=== PATIENT | male | born 1970 | race American Indian/Alaskan Native ===

== ENCOUNTER 2017-11-01 11:21 | Inpatient (IN) | payer MEDICAID, OTHER ==
[2017-11-01 12:14] LABS: BASO # 0.1 K/uL (0.0-0.2); BASO % 1.3 % (0.0-2.0); EOS # 0.1 K/uL (0.0-0.7); EOS % 1.2 % (0.0-4.0); HEMOGLOBIN 13.1 g/dL (12.0-18.0); LYMPH # 2.2 K/uL (1.0-4.3); LYMPH % 23.5 % (20.0-40.0); MEAN CELL VOLUME 79.8 fL (80.0-94.0); MEAN CORPUSCULAR HEMOGLOBIN 26.5 pg (27.0-31.0); MEAN CORPUSCULAR HGB CONC 33.1 g/dL (33.0-37.0); MEAN PLATELET VOLUME 8.6 fL (7.2-11.7); MONO # 0.6 K/uL (0.0-0.8); MONO % 6.7 % (0.0-10.0); NEUT # 6.2 K/uL (1.8-7.0); NEUT % 67.3 % (50.0-75.0); NRBC % 0.1 % (0.0-2.0); RBC 4.94 Mil/uL (4.40-5.90); RED CELL DISTRIBUTION WIDTH 15.1 % (11.5-14.5); WHITE BLOOD COUNT 9.3 K/uL (4.8-10.8)
[2017-11-01 12:27] LABS: ALB/GLOB RATIO 1.5 (1.0-2.1); ALBUMIN 3.9 g/dL (3.5-5.0); ALT/SGPT 19 U/L (21-72); AST/SGOT 16 U/L (17-59); BLOOD UREA NITROGEN 13 mg/dL (9-20); CALCIUM 8.9 mg/dl (8.6-10.4); GFR AFRICAN-AMERICAN > 60; GFR NON-AFRICAN AMERICAN > 60
--- NOTE | 2017-11-01 12:59 | C.PDOC ---
History Of Present Illness 47 y/o male presents to the ER for detox from heroin and pills. Patient is prescreened. Patient does not have any other complaints. Time Seen by Provider: 11/01/17 12:21 Chief Complaint (Nursing): Substance Abuse History Per: Patient History/Exam Limitations: no limitations Past Medical History Reviewed: Historical Data, Nursing Documentation, Vital Signs Vital Signs: Last Vital Signs Temp 98.5 F 11/01/17 11:25 Pulse 90 11/01/17 11:25 Resp 12 11/01/17 11:25 BP 121/78 11/01/17 11:25 Pulse Ox 97 11/01/17 14:06 - Medical History PMH: Asthma, HTN, Hyperlipidemia Surgical History: No Surg Hx Family History: States: No Known Family Hx - Social History Hx Alcohol Use: Yes Hx Substance Use: Yes (THIS MORNING) - Immunization History Hx Tetanus Toxoid Vaccination: No Hx Influenza Vaccination: No Hx Pneumococcal Vaccination: No Review Of Systems Except As Marked, All Systems Reviewed And Found Negative. Physical Exam - Physical Exam Appears: No Acute Distress, Other (large, obese, black male) Skin: Normal Color, Warm Head: Atraumatic, Normacephalic Eye(s): bilateral: Normal Inspection Nose: Normal Oral Mucosa: Moist Neck: Supple Chest: Symmetrical Cardiovascular: Rhythm Regular Respiratory: Normal Breath Sounds, No Accessory Muscle Use, No Rales, No Rhonchi , No Wheezing Extremity: Normal ROM Neurological/Psych: Oriented x3, Normal Speech, Normal Motor, Normal Sensation ED Course And Treatment - Laboratory Results Result Diagrams: 11/01/17 12:11 11/01/17 12:11 Lab Interpretation: Abnormal (tox + opiates, cocaine, cannabanoids) O2 Sat by Pulse Oximetry: 97 (RA) Pulse Ox Interpretation: Normal Progress Note: d/w Crisis @ 1400, ok for Adm to detox Disposition Doctor Will See Patient In The: Hospital Counseled Patient/Family Regarding: Studies Performed, Diagnosis - Disposition Disposition: HOSPITALIZED Disposition Time: 13:57 Condition: GOOD - Clinical Impression Clinical Impression: Polysubstance dependence including opioid type drug, episodic abuse - Scribe Statement The provider has reviewed the documentation as recorded by the [place] Provider Attestation: All medical record entries made by the [place]ibkush were at my direction and personally dictated by me. I have reviewed the chart and agree that the record accurately reflects my personal performance of the history, physical exam, medical decision making, and the department course for this patient. I have also personally directed, reviewed, and agree with the discharge instructions and disposition.
[2017-11-01 13:05] LABS: SQUAMOUS EPITHIAL < 1 /hpf (0-5); URINE BACTERIA RARE (<OCC)
[2017-11-01 13:06] LABS: URINE BILIRUBIN SMALL (NEGATIVE); URINE BLOOD NEGATIVE (NEGATIVE); URINE CLARITY Clear (Clear); URINE COLOR YELLOW (YELLOW); URINE GLUCOSE (UA) NEGATIVE (Normal); URINE LEUKOCYTE ESTERASE NEGATIVE Leu/uL (Negative); URINE NITRATE NEGATIVE (NEGATIVE); URINE PROTEIN NEGATIVE (NEGATIVE); URINE UROBILINOGEN 0.2 mg/dL (0.2-1.0)
[2017-11-01 13:24] LABS: BARBITURATES, UR NEGATIVE (NEGATIVE); BENZODIAZEPINES, UR NEGATIVE (NEGATIVE); PHENCYCLIDINE, UR NEGATIVE (NEGATIVE)
[2017-11-01 13:45] LABS: OPIATES, UR POSITIVE (NEGATIVE)
[2017-11-01] MEDS ORDERED: Buprenorphine Hydrochloride 2 mg SL ONE ×2 (17:17→18:30)
--- NOTE | 2017-11-01 20:46 | PCM.BM ---
<Margi Pettit - Last Filed: 11/01/17 20:45> Treatment Plan Problems - Problems identified on initial assessmt Potential for opiate withdrawal Date Initiated: 11/01/17 Time Initiated: 20:46 Assessment reference: NA Status: Active Treatment assets and liabiliti Patient Assests: cooperative, negotiates basic needs, cognitively intact Patient Liabilities: substance abuse (Opiates), medical problems (HTN, DM) - Milieu Protocol Maintain good personal hygiene: daily Encourage regular showers, daily Remind patient to perform daily oral care, daily Assist patient to perform ADL's Conduct patient checks and document Observation sheet: Q15 minutes Maintain personal safety: every shift Educate patient to report safety concerns to staff, every shift Monitor environment for contraband/sharps Medication safety: Monitor for expected outcome, potential side effects: every shift, Assess barriers to learning: every shift, Assess readiness for medication education: every shift <Carlie Richardson - Last Filed: 11/03/17 07:32> - Diagnosis (1) Opioid use disorder, severe, dependence Status: Acute Interventions: 11/03/17 07:32 * Assess 7x/week regarding severity of withdrawal * Educate regarding risks, benefits, side effects and alternatives of medications * Use Motivational Interviewing for abstinence * Use CBT for relapse prevention * Medication management for withdrawal symptoms * Encourage medication assisted treatment *
[2017-11-01] MEDS ORDERED: Aluminum Hydroxide/Magnesium Hydroxide Susp (30 mL) PO PRN (23:51)
[2017-11-02] MEDS: diltiaZEM 180 mg/24 Hours CD Cap PO SCH (10:05)
[2017-11-02] MEDS: Buprenorphine Hydrochloride 2 mg SL SCH (10:07)
[2017-11-02] MEDS ORDERED: Albuterol HFA 90 mcg/actuation (8 g) INH PRN (10:29)
--- NOTE | 2017-11-02 13:16 | PCM.PSYCH ---
Initial Psychiatric Evaluation - Initial Psychiatric Evaluation Type of Admission: Voluntary Legal Status: Capacity Chief Complaint (in patient's own words): " I want it all out of my system" History of Present Illness and Precipitating Events: 47 single Male who is currently employed at [employer]. He has 2 adult children and is currently living with his mother. The patient reports that he hurt his back and kneed a year ago and was prescribed pain medication. He says he would take 8 30mg tablets a day and when that became to expensive he started using 10 bags of heroin a day. The pt denies using cocaine, but reports that he sells it. The patient said that he was in shelter for selling drugs, upon release he then completed a program through a residential [facility] for a year and a half. The patient denies the use of alcohol, cannabis, xanax, and other drugs. Patient reports that he would like to go back to work upon discharge and enter an outpatient rehab Detox Hx: twice Rehab Hx:denies Medical Hx: asthma, HTN, diabetes, high cholesterol, back pain Medications: asthma inhaler, Lipitor, metformin, cardizem, Zestoretic Psych Hx: denies Fam Hx: denies Current Medications: Active Medications Generic Name Dose Route Start Last Admin Trade Name Freq PRN Reason Stop Dose Admin Al Hydrox/Mg Hydrox/Simethicone 30 ml 11/01/17 23:51 Maalox 30 Ml PO TID PRN Indigestion / Heartburn Albuterol 1 puff 11/02/17 10:29 Ventolin Hfa 90 Mcg/Actuation (8 G) INH RQ4 PRN SOB Buprenorphine HCl 8 mg 11/02/17 10:00 11/02/17 10:07 Subutex SL 11/07/17 09:59 8 mg DAILY CARMELA Administration Taper Clonidine HCl 0.1 mg 11/01/17 23:51 11/02/17 06:31 Catapres PO 0.1 mg Q8 PRN Administration COWS Score More or Equal to 5 Diltiazem HCl 180 mg 11/02/17 10:00 11/02/17 10:05 Cardizem Cd PO 180 mg DAILY CARMELA Administration Gabapentin 600 mg 11/01/17 18:00 11/02/17 10:06 Neurontin PO 600 mg TID CARMELA Administration Hydrochlorothiazide 12.5 mg 11/02/17 11:30 11/02/17 12:21 Microzide PO 12.5 mg DAILY CARMELA Administration Lisinopril 20 mg 11/02/17 11:30 11/02/17 12:21 Zestril PO 20 mg DAILY CARMELA Administration Loperamide HCl 2 mg 11/01/17 23:51 Imodium PO Q8 PRN Diarrhea Metformin HCl 500 mg 11/01/17 18:00 11/02/17 10:06 Glucophage PO 500 mg BID CARMELA Administration Ondansetron HCl 4 mg 11/01/17 23:51 Zofran Tab PO Q8 PRN Nausea/Vomiting Rosuvastatin Calcium 10 mg 11/02/17 22:00 Crestor PO HS CARMELA Trazodone HCl 100 mg 11/01/17 22:00 11/01/17 22:22 Desyrel PO Not Given HS CARMELA Past Psychiatric History - Past Psychiatric History Previous Treatment History: None Pertinent Medical Hx (Current Medical&Sleep Prob, Allergies): Allergies Allergy/AdvReac Type Severity Reaction Status Date / Time No Known Allergies Allergy Verified 11/01/17 11:25 Review of Systems - Musculoskeletal Musculoskeletal: Back Pain, Stiffness. absent: Numbness, Tingling Additional comments: b/l knee pain - Neurological Neurological: absent: Numbness, Focal Weakness, Lack of Coordination - Psychiatric Psychiatric: Abnormal Sleep Pattern, Irritability. absent: Difficulty Concentrating, Homicidal Ideation, Suicidal Ideation Mental Status Examination - Personal Presentation Personal Presentation: Looks stated age - Affect Affect: Constricted - Motor Activity Motor Activity: Calm - Reliability in Providing Information Reliability in Providing Information: Fair - Speech Speech: Organized - Mood Mood: Neutral - Formal Thought Process Formal Thought Process: No Impairment - Obsessions/Compulsions Obsessions: None Compulsions: None - Cognitive Functions Orientation: Person, Place, Situation, Time Sensorium: Alert Attention/Concentration: Attentive Abstract Thinking: [place] Estimate of Intelligence: Average Judgement: Intact, as evidence by: Insight regarding need for hospitalization Memory: Recent intact, as evidence by: Ability to recall events of the day, Remote intact, as evidenced by: Abilit to recall sig. life events - Risk Risk: Withdrawal, Diminished functioning - Strength & Assets Inventory Strength & Assets Inventory: Employment status, Cooperative DSM 5 DX - DSM 5 DSM 5 Diagnosis: Opioid Withdrawal Opioid Use d/o - severe Cannabis use severe r/o personality d/o - Recommended/Plan of Treatment Treatment Recommendations and Plan of Treatment: Subutex detox As needed medications All risks, benefits and alternatives of the meds discussed, and the pt agreed and understood. Attend groups and activities Supportive therapy and psychoeducation MD for abstinence, incl. cannabis CBT for relapse prevention Encourage MAT Refer to rehab or IOP, and self-help groups Smoking cessation with MD Nicotine patch 32 min Projected ELOS: 4-5 days Prognosis: good with treatment Discharge Plan and Discharge Criteria: outpatient rehab and MAT - Smoking Cessation Smoking Cessation Initiated: Yes
--- NOTE | 2017-11-03 09:20 | PCM.PYCHPN ---
Psychiatric Progress Note - Psychiatric Progress Note Patient seen today, length of contact: 15 min Patient Chief Complaint: I m experiencing withdrawal symptoms Problems Identified/Issues Discussed: Patient seen and evaluated, chart reviewed and discussed with the nurse. The patient reports improvement in his mood but still reports withdrawal symptoms including anxiety, headaches, cramps and sweating. As per the nurse patient is improving but still reports of anxiety. Patient has something anxiety and denies any suicidal ideation or homicidal ideation. Patient is taking medications and denies any side effects. Supportive therapy and psychoeducation were given. Patient seen and evaluated, chart reviewed and discussed with the nurse. Medication Change: No Medical Record Reviewed: Yes Mental Status Examination - Cognitive Function Orientation: Person, Place, Situation, Time Memory: Intact Attention: WNL Concentration: Poor Association: WNL Fund of Knowledge: Poor - Mood Mood: Neutral - Affect Affect: Constricted - Speech Speech: Soft - Formal Thought Process Formal Thought Process: No Impairment - Suicidal Ideation Suicidal Ideation: No - Homicidal Ideation Homicidal Ideation: No Goal/Treatment Plan - Goal/Treatment Plan Need for Continued Stay: Discharge may exacerbated symptoms Progress Toward Problem(s) and Goals/Treatment Plan: Opioid Withdrawal Opioid Use d/o - severe Cannabis use severe r/o personality d/o Subutex detox As needed medications All risks, benefits and alternatives of the meds discussed, and the pt agreed and understood. Attend groups and activities Supportive therapy and psychoeducation [place] for abstinence, incl. cannabis CBT for relapse prevention Encourage MAT Refer to rehab or IOP, and self-help groups Smoking cessation with [place] Nicotine patch - Smoking Cessation Smoking Cessation Initiated: No
[2017-11-03] MEDS: diltiaZEM 180 mg/24 Hours CD Cap PO SCH (09:31)
[2017-11-03] MEDS: Buprenorphine Hydrochloride 2 mg SL SCH (09:31)
[2017-11-04] MEDS: Buprenorphine Hydrochloride 2 mg SL SCH (09:23)
[2017-11-04] MEDS: diltiaZEM 180 mg/24 Hours CD Cap PO SCH (09:23)
--- NOTE | 2017-11-04 11:40 | PCM.PYCHPN ---
Psychiatric Progress Note - Psychiatric Progress Note Patient seen today, length of contact: 15 min Patient Chief Complaint: I need an extra dose of Subutex Problems Identified/Issues Discussed: Patient seen and evaluated, chart reviewed and discussed with the nurse. Today patient reports withdrawal symptoms and is asking for extra dose of Subutex. He still reporting cramps, joint pains, headaches and sweating. As per the nurse patient is improving but still reports of anxiety. Patient is tolerating detox medications and denies any side effects. Supportive therapy and psychoeducation were given. Symptoms are improving but he needs more time for stabilization. Medication Change: Yes (Subutex taper) Medical Record Reviewed: Yes Mental Status Examination - Cognitive Function Orientation: Person, Place, Situation, Time Memory: Intact Attention: WNL Concentration: Poor Association: WNL Fund of Knowledge: Poor - Mood Mood: Neutral - Affect Affect: Constricted - Speech Speech: Soft - Formal Thought Process Formal Thought Process: No Impairment - Suicidal Ideation Suicidal Ideation: No - Homicidal Ideation Homicidal Ideation: No Goal/Treatment Plan - Goal/Treatment Plan Need for Continued Stay: Discharge may exacerbated symptoms Progress Toward Problem(s) and Goals/Treatment Plan: Opioid Withdrawal Opioid Use d/o - severe Cannabis use severe r/o personality d/o Subutex detox As needed medications All risks, benefits and alternatives of the meds discussed, and the pt agreed and understood. Attend groups and activities Supportive therapy and psychoeducation [place] for abstinence, incl. cannabis CBT for relapse prevention Encourage MAT Refer to rehab or IOP, and self-help groups Smoking cessation with [place] Nicotine patch - Smoking Cessation Smoking Cessation Initiated: No
[2017-11-04] MEDS ORDERED: Buprenorphine Hydrochloride 2 mg SL ONE (13:24)
[2017-11-04 15:39] VITALS: RESP 18
[2017-11-05 08:25] LABS: BLOOD UREA NITROGEN 15 mg/dL (9-20); GFR AFRICAN-AMERICAN > 60; GFR NON-AFRICAN AMERICAN > 60; HDL CHOLESTEROL 51 mg/dL (30-70)
[2017-11-05 08:35] LABS: LDL CHOLESTEROL 70 mg/dL (0-129)
[2017-11-05] MEDS ORDERED: Ergocalciferol 50,000 Intl Units Cap PO SCH (09:00)
[2017-11-05] MEDS: diltiaZEM 180 mg/24 Hours CD Cap PO SCH (09:01)
[2017-11-05] MEDS: Buprenorphine Hydrochloride 2 mg SL SCH (09:01)
[2017-11-05 09:40] VITALS: BP 133/77; PULSE 93; TEMP 97.9; O2SAT 98
--- NOTE | 2017-11-05 14:52 | PCM.PYCHDC ---
Mental Status Examination - Mental Status Examination Orientation: Person, Place, Situation, Time Memory: Intact Mood: Neutral Affect: Other Speech: Appropriate Attention: WNL Concentration: WNL Association: WNL Fund of Knowledge: WNL Suicidal Ideation: No Current Homicidal Ideation?: No Discharge Summary - Discharge Note Reason for Hospitalization: Opioid Detox Laboratory Data: Abnormal Lab Results 11/05/17 11/05/17 11/05/17 07:53 07:53 07:53 Sodium 135 Potassium 4.4 Chloride 96 L Carbon Dioxide 30 Anion Gap 13 BUN 15 Creatinine 1.0 Est GFR ( Amer) > 60 Est GFR (Non-Af Amer) > 60 Random Glucose 103 Hemoglobin A1c 6.5 Calcium 9.0 Triglycerides 60 Cholesterol 139 LDL Cholesterol Direct 70 HDL Cholesterol 51 25-OH Vitamin D Total 22.3 L Consultations:: List each consultation separately and include: 1. Reason for request. 2. Findings. 3. Follow-up Summary of Hospital Course include:: 1. Description of specific treatment plan utilized for patients during their course of treatmen. 2. Summarize the time- course for resolution of acute symptoms and/or regressed behaviors. 3. Describe issues identified and worked on during hospitalization. 4. Describe medication utilized. 5. Describe medical problems identified and treated. 6. Reassessment of suicide risk Summary of Hospital Course: On Admission: 47 single Male who is currently employed at [employer]. He has 2 adult children and is currently living with his mother. The patient reports that he hurt his back and kneed a year ago and was prescribed pain medication. He says he would take 8 30mg tablets a day and when that became to expensive he started using 10 bags of heroin a day. The pt denies using cocaine, but reports that he sells it. The patient said that he was in penitent[facility] for selling drugs, upon release he then completed a program through a halfway [facility] for a year and a half. The patient denies the use of alcohol, cannabis, xanax, and other drugs. Patient reports that he would like to go back to work upon discharge and enter an outpatient rehab Throughout Hospital Course: The pt was admitted and started on treatment with psychotherapy, support, psychoeducation and medications. [place] and CBT used. The pt attended groups and activities, as well as milieu therapy. All the risks and benefits of medications are discussed and the patient understood and agreed. The pt improved with the treatments provided. He was mostly in bed. We also found lice and gave Nix tx and changed all his clothes with new ones. After care discussed with the patient. - Diagnosis (1) Opioid use disorder, severe, dependence Status: Acute - Final Diagnosis (DSM 5) Condition upon Discharge: STABLE Disposition: HOME/ ROUTINE Follow-up Treatment Plan: Continue below medications after discharge. Follow after care plan as discussed. Use relapse prevention skills Return to ER or call 911 if suicidal, homicidal or symptoms relapse. Stay away from stress, alcohol and drugs. See primary doctor regularly and get labs. Prescriptions/Medication Reconciliation: Ergocalciferol [Drisdol 50,000 Intl Units Cap] 1 cap PO Q7D #7 cap traZODone [Desyrel] 100 mg PO HS #30 tab
== END 2017-11-05 09:15 | disposition home or self-care (01) | DRG 745 ==
LOC: C.ER 11:21 → C.7D 13:53
PROVIDERS: ADMIT Psychiatry & Neurology Psychiatry; ATTEND Psychiatry & Neurology Psychiatry
PROC: HZ52ZZZ Individual Psychotherapy for Substance Abuse Treatment, Cognitive-Behavioral (ICD-10-PCS; principal; 2017-11-01)
PROC: HZ59ZZZ Individual Psychotherapy for Substance Abuse Treatment, Supportive (ICD-10-PCS; 2017-11-01)
PROC: HZ56ZZZ Individual Psychotherapy for Substance Abuse Treatment, Psychoeducation (ICD-10-PCS; 2017-11-01)
PROC: HZ2ZZZZ Detoxification Services for Substance Abuse Treatment (ICD-10-PCS; 2017-11-01)
DX: F11.23 Opioid dependence with withdrawal (principal); B85.2 Pediculosis, unspecified; F12.90 Cannabis use, unspecified, uncomplicated; E11.9 Type 2 diabetes mellitus without complications; E78.00 Pure hypercholesterolemia, unspecified; F41.9 Anxiety disorder, unspecified; I10 Essential (primary) hypertension; J45.909 Unspecified asthma, uncomplicated; M54.9 Dorsalgia, unspecified